=== PATIENT | male | born 1935 | race Caucasian/White ===

== ENCOUNTER 2022-08-05 20:54 | Emergency (ER) | payer MEDICARE, OTHER ==
[2022-08-05 21:35] LABS: ESTIMATED GFR 49 mL/min (>60)
== END 2022-08-05 22:45 | disposition home or self-care (01) ==
LOC: FB.ED 20:54
DX: R41.0 Disorientation, unspecified (principal); I25.10 Atherosclerotic heart disease of native coronary artery without angina pectoris; E78.00 Pure hypercholesterolemia, unspecified; E78.5 Hyperlipidemia, unspecified; M10.9 Gout, unspecified; I12.9 Hypertensive chronic kidney disease with stage 1 through stage 4 chronic kidney disease, or unspecified chronic kidney disease; N18.9 Chronic kidney disease, unspecified; I25.2 Old myocardial infarction; Z79.82 Long term (current) use of aspirin; Z79.899 Other long term (current) drug therapy
CPT/HCPCS: 36415; 80048; 81001; 85025; 99285

== ENCOUNTER 2022-11-11 11:25 | Emergency (ER) | payer MEDICARE, OTHER ==
[2022-11-11] MEDS ORDERED: Tranexamic Acid 1,000 MG in Sodium Chloride 0.9% 50 ML IV ONE (12:42)
[2022-11-11] MEDS ORDERED: Labetalol 20 MG/4 ML Syringe IVPUSH ONE (12:43)
[2022-11-11] MEDS: Sodium Chloride 0.9% 10 ML Syringe FLUSH PRN ×3 (12:47→13:17)
== END 2022-11-11 15:15 | disposition home or self-care (01) ==
LOC: FB.ED 11:25
DX: R04.0 Epistaxis (principal); E78.00 Pure hypercholesterolemia, unspecified; I25.2 Old myocardial infarction; I12.9 Hypertensive chronic kidney disease with stage 1 through stage 4 chronic kidney disease, or unspecified chronic kidney disease; N18.9 Chronic kidney disease, unspecified; M10.9 Gout, unspecified; Z79.82 Long term (current) use of aspirin; Z79.899 Other long term (current) drug therapy
CPT/HCPCS: 96374; 96375; 99284; J3490

== ENCOUNTER 2022-12-23 08:14 | Emergency (ER) | payer OTHER, MEDICARE ==
[2022-12-23 09:06] LABS: ESTIMATED GFR 59 mL/min (>60)
[2022-12-23] MEDS ORDERED: Iopamidol 755 Mg/ML 100 ML Bottle IV ONE (12:42)
[2022-12-23] MEDS ORDERED: Sodium Chloride 0.9% 1,000 ML IV SCH (13:30)
== END 2022-12-23 15:34 ==
LOC: FB.ED 08:14
DX: N28.1 Cyst of kidney, acquired (principal); N20.0 Calculus of kidney; I25.10 Atherosclerotic heart disease of native coronary artery without angina pectoris; K83.8 Other specified diseases of biliary tract; R41.0 Disorientation, unspecified; I25.2 Old myocardial infarction; E78.00 Pure hypercholesterolemia, unspecified; I12.9 Hypertensive chronic kidney disease with stage 1 through stage 4 chronic kidney disease, or unspecified chronic kidney disease; N18.9 Chronic kidney disease, unspecified; Z79.899 Other long term (current) drug therapy; Z79.82 Long term (current) use of aspirin
CPT/HCPCS: 36415; 71045; 74174; 74176; 80053; 81001; 83605; 83735; 83880; 84484; 85025; 86140; 93005; 93010; 99285; C1758; Q9967; J7030

== ENCOUNTER 2023-07-18 09:58 | Emergency (ER) | payer OTHER, MEDICARE ==
[2023-07-18 10:44] LABS: BASOPHILS ABSOLUTE AUTO 0.1 x10-3/uL (0.0-0.3); EOSINOPHILS ABSOLUTE AUTO 0.1 x10-3/uL (0.0-0.6); EOSINOPHILS PERCENT AUTO 1.1 % (0.1-6.8); HEMATOCRIT 33.4 % (38.3-50.1); LYMPHOCYTES ABSOLUTE AUTO 0.3 x10-3/uL (0.5-4.5); LYMPHOCYTES PERCENT AUTO 4.4 % (15.8-45.3); MEAN CORPUSCULAR HEMOGLOBIN 28.7 pg (27.0-33.3); MEAN CORPUSCULAR VOLUME 87.1 fL (80.8-98.7); MEAN PLATELET VOLUME 9.8 fL (6.7-11.0); MONOCYTES ABSOLUTE AUTO 0.7 x10-3/uL (0.0-1.2); MONOCYTES PERCENT AUTO 11.7 % (5.5-15.2); NEUTROPHILS ABSOLUTE AUTO 4.8 x10-3/uL (1.7-6.9); NEUTROPHILS PERCENT AUTO 81.8 % (40.3-71.8); PLATELET COUNT,PLT 144 x10(3)uL (117-477); RED BLOOD CELL COUNT 3.83 x10(6)uL (3.90-5.90); RED CELL DISTRIBUTION WIDTH 16.9 % (12.4-15.0); WHITE BLOOD CELL COUNT,WBC 5.9 x10-3/uL (3.2-10.1)
[2023-07-18 10:46] LABS: BLOOD UREA NITROGEN,BUN 26 mg/dL (7-18); CALCIUM 9.1 mg/dL (8.6-10.2); CARBON DIOXIDE,CO2 29 mmol/L (21-32); CHLORIDE,CL 107 mmol/L (100-110); CREATININE 1.3 mg/dL (0.70-1.30); ESTIMATED GFR 53 mL/min (>60); GLUCOSE RANDOM 97 mg/dL (80-116); POTASSIUM,K 3.9 mmol/L (3.5-5.3); SODIUM,NA 141 mmol/L (135-145)
[2023-07-18 10:52] LABS: A/G RATIO 0.9; ALANINE AMINOTRANSFERASE,ALT 29 U/L (12-36); ALBUMIN 3.2 g/dL (3.2-4.6); ALKALINE PHOSPHATASE 120 IU/L (56-112); ASPARTATE AMNIOTRANSFERASE,AST 23 IU/L (5-25); BILIRUBIN TOTAL 1.1 mg/dL (0.1-1.3); MAGNESIUM 1.7 mg/dL (1.8-2.5); PROTEIN TOTAL,TP 6.7 g/dL (6.0-8.0)
[2023-07-18 11:46] LABS: BILIRUBIN,URINE NEGATIVE (NEGATIVE); GLUCOSE,URINE NORMAL (NORMAL); KETONES,URINE NEGATIVE (NEGATIVE); LEUKOCYTE ESTERASE,URINE NEGATIVE (NEGATIVE); NITRITE,URINE NEGATIVE (NEGATIVE); OCCULT BLOOD,URINE NEGATIVE (NEGATIVE); PROTEIN,URINE NEGATIVE (NEGATIVE); UROBILINOGEN,URINE NORMAL (NEGATIVE)
[2023-07-18 11:47] LABS: APPEARANCE,URINE CLEAR (CLEAR); BACTERIA,URINE OCCASIONAL (NS); COLOR,URINE YELLOW (YELLOW); SQUAMOUS EPITHELIAL CELLS,UR OCCASIONAL (NS,R,O); WBC,URINE 0-5 (0-5)
[2023-07-18 12:27] LABS: INFLUENZA A NAA NEGATIVE (NEGATIVE); INFLUENZA B NAA NEGATIVE (NEGATIVE)
[2023-07-18] MEDS: Furosemide 40 MG Tab PO ONE (12:55)
[2023-07-18 13:16] LABS: RESPIRATORY SYNCYTIAL VIR NAA NEGATIVE (NEGATIVE)
[2023-07-18 13:17] LABS: CORONAVIRUS COVID-19 NAA NEGATIVE (NEGATIVE)
== END 2023-07-18 13:45 ==
LOC: FB.ED 09:58
DX: I13.0 Hypertensive heart and chronic kidney disease with heart failure and stage 1 through stage 4 chronic kidney disease, or unspecified chronic kidney disease (principal); N18.9 Chronic kidney disease, unspecified; I50.9 Heart failure, unspecified; E83.42 Hypomagnesemia; R79.82 Elevated C-reactive protein (CRP); R60.0 Localized edema; B34.9 Viral infection, unspecified; I48.91 Unspecified atrial fibrillation; E78.00 Pure hypercholesterolemia, unspecified; I25.2 Old myocardial infarction; Z79.82 Long term (current) use of aspirin; Z79.899 Other long term (current) drug therapy; Z20.822 Contact with and (suspected) exposure to COVID-19
CPT/HCPCS: 0241U; 36415; 71046; 80053; 81001; 83735; 85025; 86140; 99284; A9270

== ENCOUNTER 2023-07-18 20:00 | Observation (INO) | payer OTHER, MEDICARE ==
[2023-07-18] MEDS ORDERED: Iopamidol 755 Mg/ML 100 ML Bottle IV ONE (21:49)
[2023-07-19] MEDS ORDERED: Furosemide 40 MG/4 ML VIAL IVPUSH ONE (00:01)
[2023-07-19] MEDS: Sodium Chloride 0.9% 10 ML Syringe FLUSH PRN ×2 (00:43→12:59)
[2023-07-19 06:57] LABS: HEMATOCRIT 33.3 % (38.3-50.1); HEMOGLOBIN 10.9 g/dL (12.9-17.7); MEAN CORPUSCULAR HEMOGLOBIN 28.6 pg (27.0-33.3); MEAN CORPUSCULAR HGB CONC 32.8 g/dL (28.7-35.3); MEAN CORPUSCULAR VOLUME 87.1 fL (80.8-98.7); MEAN PLATELET VOLUME 10.6 fL (6.7-11.0); PLATELET COUNT,PLT 155 x10(3)uL (117-477); RED BLOOD CELL COUNT 3.82 x10(6)uL (3.90-5.90); RED CELL DISTRIBUTION WIDTH 16.7 % (12.4-15.0); WHITE BLOOD CELL COUNT,WBC 3.8 x10-3/uL (3.2-10.1)
[2023-07-19 06:58] LABS: BLOOD UREA NITROGEN,BUN 25 mg/dL (7-18); BUN/CREATININE RATIO 19.2 (9-20); CALCIUM 9.2 mg/dL (8.6-10.2); CARBON DIOXIDE,CO2 32 mmol/L (21-32); CHLORIDE,CL 105 mmol/L (100-110); CREATININE 1.3 mg/dL (0.70-1.30); EST CRCL DRUG DOSING (CG) 39.28 mL/min; ESTIMATED GFR 53 mL/min (>60); GLUCOSE RANDOM 83 mg/dL (80-116); POTASSIUM,K 3.3 mmol/L (3.5-5.3); SODIUM,NA 144 mmol/L (135-145)
[2023-07-19 07:22] LABS: BAND PERCENT MAN 4 % (0-6); EOSINOPHILS PERCENT MAN 8 % (0-5); LYMPHOCYTES PERCENT MAN 12 % (13-37); MONOCYTES PERCENT MAN 20 % (4-12); SEG NEUTROPHILS PERCENT MAN 56 % (46-82)
[2023-07-19] MEDS ORDERED: Metolazone 2.5 MG Tab PO SCH (07:30)
[2023-07-19] MEDS ORDERED: Furosemide 40 MG Tab PO SCH (08:00)
[2023-07-19] MEDS ORDERED: Metoprolol Tartrate 25 MG Tab PO SCH (09:00)
[2023-07-19] MEDS ORDERED: Losartan 25 MG Tab PO SCH (09:00)
[2023-07-19] MEDS ORDERED: Calcium Carbonate 500 MG Tablet PO SCH (09:00)
[2023-07-19] MEDS ORDERED: Magnesium Oxide 400 MG Tab PO SCH (09:00)
[2023-07-19] MEDS: Sennosides 8.6 MG Tab PO SCH (09:15)
[2023-07-19] MEDS: Aspirin 81 MG Tab.EC PO SCH (09:15)
[2023-07-19] MEDS: Multivitamin Tab PO SCH (09:15)
[2023-07-19] MEDS: Cholecalciferol (Vitamin D3) 25 MCG Tab PO SCH (09:16)
[2023-07-19] MEDS: Allopurinol 100 MG Tab PO SCH (09:16)
[2023-07-19] MEDS ORDERED: OLANZapine 5 MG Tab PO PRN (09:33)
[2023-07-19] MEDS ORDERED: Acetaminophen 325 MG Tab PO PRN (09:33)
[2023-07-19] MEDS ORDERED: Apixaban 2.5 MG Tab PO SCH (10:00)
[2023-07-19] MEDS: Potassium Chloride 20 MEQ Tab.ER PO SCH ×2 (10:12→21:19)
[2023-07-19] MEDS: Calcium Carbonate 500 MG Tablet PO SCH (10:12)
[2023-07-19] MEDS: Metoprolol Succinate 25 MG Tab.ER PO SCH (10:13)
[2023-07-19] MEDS ORDERED: Furosemide 40 MG/4 ML VIAL IVPUSH SCH (14:00)
[2023-07-19] MEDS ORDERED: Finasteride 5 MG Tab PO SCH (21:00)
[2023-07-19] MEDS ORDERED: atorvaSTATin 40 MG Tab PO SCH (21:00)
[2023-07-19] MEDS ORDERED: Melatonin 3 MG Tab PO SCH (21:00)
[2023-07-19] MEDS ORDERED: Terazosin 5 MG Cap PO SCH (21:00)
[2023-07-19] MEDS ORDERED: Mirtazapine 15 MG Tab PO SCH (21:00)
[2023-07-19] MEDS: Apixaban 5 MG Tab PO SCH (21:22)
[2023-07-20 06:27] LABS: HEMATOCRIT 33.7 % (38.3-50.1); HEMOGLOBIN 10.9 g/dL (12.9-17.7); MEAN CORPUSCULAR HEMOGLOBIN 28.6 pg (27.0-33.3); MEAN CORPUSCULAR HGB CONC 32.4 g/dL (28.7-35.3); MEAN CORPUSCULAR VOLUME 88.2 fL (80.8-98.7); MEAN PLATELET VOLUME 11.5 fL (6.7-11.0); PLATELET COUNT,PLT 142 x10(3)uL (117-477); RED BLOOD CELL COUNT 3.82 x10(6)uL (3.90-5.90); RED CELL DISTRIBUTION WIDTH 17.4 % (12.4-15.0); WHITE BLOOD CELL COUNT,WBC 4.7 x10-3/uL (3.2-10.1)
[2023-07-20 06:43] LABS: BLOOD UREA NITROGEN,BUN 35 mg/dL (7-18); BUN/CREATININE RATIO 23.3 (9-20); CALCIUM 8.9 mg/dL (8.6-10.2); CARBON DIOXIDE,CO2 34 mmol/L (21-32); CHLORIDE,CL 104 mmol/L (100-110); CREATININE 1.5 mg/dL (0.70-1.30); EST CRCL DRUG DOSING (CG) 34.04 mL/min; ESTIMATED GFR 45 mL/min (>60); POTASSIUM,K 3.4 mmol/L (3.5-5.3); SODIUM,NA 143 mmol/L (135-145)
[2023-07-20 06:48] LABS: GLUCOSE RANDOM 87 mg/dL (80-116)
[2023-07-20 06:59] LABS: EOSINOPHILS PERCENT MAN 6 % (0-5); LYMPHOCYTES PERCENT MAN 16 % (13-37); MONOCYTES PERCENT MAN 22 % (4-12); SEG NEUTROPHILS PERCENT MAN 56 % (46-82)
[2023-07-20] MEDS: Aspirin 81 MG Tab.EC PO SCH (08:39)
[2023-07-20] MEDS: Calcium Carbonate 500 MG Tablet PO SCH (08:39)
[2023-07-20] MEDS: Potassium Chloride 20 MEQ Tab.ER PO SCH (08:39)
[2023-07-20] MEDS: Sennosides 8.6 MG Tab PO SCH (08:39)
[2023-07-20] MEDS: Multivitamin Tab PO SCH (08:40)
[2023-07-20] MEDS: Allopurinol 100 MG Tab PO SCH (08:40)
[2023-07-20] MEDS: Cholecalciferol (Vitamin D3) 25 MCG Tab PO SCH (08:40)
[2023-07-20] MEDS: Metoprolol Succinate 25 MG Tab.ER PO SCH (08:40)
[2023-07-20] MEDS: Apixaban 5 MG Tab PO SCH (08:47)
[2023-07-20] MEDS ORDERED: Losartan 25 MG Tab PO SCH (09:00)
[2023-07-20] MEDS ORDERED: Furosemide 40 MG Tab PO SCH (09:00)
== END 2023-07-20 13:40 | disposition home health service (06) ==
LOC: FB.ED 20:00 → FB.MS 23:39
PROVIDERS: ADMIT Family Medicine; ATTEND Family Medicine
DX: I13.0 Hypertensive heart and chronic kidney disease with heart failure and stage 1 through stage 4 chronic kidney disease, or unspecified chronic kidney disease (principal); N18.9 Chronic kidney disease, unspecified; I50.9 Heart failure, unspecified; E87.70 Fluid overload, unspecified; D64.9 Anemia, unspecified; R79.82 Elevated C-reactive protein (CRP); F05 Delirium due to known physiological condition; R79.89 Other specified abnormal findings of blood chemistry; I48.91 Unspecified atrial fibrillation; E78.00 Pure hypercholesterolemia, unspecified; G47.00 Insomnia, unspecified; I25.2 Old myocardial infarction; G47.30 Sleep apnea, unspecified; I73.9 Peripheral vascular disease, unspecified; M10.9 Gout, unspecified; Z79.82 Long term (current) use of aspirin; Z79.899 Other long term (current) drug therapy; Z79.01 Long term (current) use of anticoagulants; Z86.711 Personal history of pulmonary embolism; Z95.828 Presence of other vascular implants and grafts
CPT/HCPCS: 36415; 71275; 80048; 83615; 85025; 85379; 94760; 96374; 96376; 97165-GO; 97530-GO; 99285; A9270-GY; G0378; J1940; J3490; Q9967